=== PATIENT | male | born 1940 ===

== ENCOUNTER 2019-10-10 12:26 | Outpatient (CLI) | payer OTHER ==
[~2019-10-10] VITALS: Ht 170.2 cm; Wt 118.4 kg
[~2019-10-10 12:26] MED LIST: BETAXOLOL HCL10 MG; CLOPIDOGREL BIS75 MG; DOXAZOSIN MESYLA2 MG; FOSINOPRIL SODI10 MG; FUROSEMIDE20 MG; GABAPENTIN100 MG; GLIPIZIDE5 MG; METFORMIN HCL500 MG; SERTRALINE HCL25 MG
== END 2019-10-10 14:19 | disposition home or self-care (01) ==
LOC: OFIC 805 12:26
DX: H92.21 Otorrhagia, right ear (principal); H91.8X3 Other specified hearing loss, bilateral

== ENCOUNTER → 2019-11-01 | Outpatient (CLI) | payer OTHER | END | disposition home or self-care (01) | LOC: OFIC 805 10:15 | PROVIDERS: ATTEND Otolaryngology | DX: H92.21 Otorrhagia, right ear (principal); H90.3 Sensorineural hearing loss, bilateral; J32.8 Other chronic sinusitis; R09.81 Nasal congestion ==

== ENCOUNTER 2020-03-13 12:27 | Outpatient (CLI) | payer OTHER | END 2020-03-13 13:00 | disposition home or self-care (01) | LOC: OFIC 805 12:27 | PROVIDERS: ATTEND Otolaryngology | DX: H92.21 Otorrhagia, right ear (principal); H90.3 Sensorineural hearing loss, bilateral ==

== ENCOUNTER 2020-05-17 10:39 | Outpatient (CLI) | payer OTHER | END 2020-05-17 15:46 | disposition home or self-care (01) | LOC: OFIC 805 10:39 | PROVIDERS: ATTEND Otolaryngology | DX: R09.81 Nasal congestion (principal); J32.8 Other chronic sinusitis; H90.3 Sensorineural hearing loss, bilateral; H92.21 Otorrhagia, right ear ==

== ENCOUNTER → 2020-08-09 | Outpatient (CLI) | payer OTHER | END | disposition home or self-care (01) | LOC: OFIC 805 11:00 | PROVIDERS: ATTEND Otolaryngology | DX: J32.8 Other chronic sinusitis (principal); J32.1 Chronic frontal sinusitis; S09.8XXA Other specified injuries of head, initial encounter ==